=== PATIENT | female | born 1940 | race Caucasian/White ===

== ENCOUNTER 2024-12-04 16:37 | Observation (INO) ==
[2024-12-04 17:24] LABS: Basophils%(Percent) Auto 0.2 (0.1-0.85); Eosinophils%(Percent) Auto 0.1 % (0.4-2.8); Granulocytes#(Absolute)- Auto 5.2 (2.3-6.0); Hematocrit 42.1 % (35.9-46.7); Mean Corpuscular Volume 96.2 fl (81.0-93.7); Monocytes #(Absolute)- Auto 0.5 (1.1-3.1); Monocytes %(Percent)- Auto 8.1 % (3.6-9.8); Platelet Count 220 K/uL (152-353); White Blood Count 6.3 K/uL (4.3-9.3)
[2024-12-04 17:36] LABS: Potassium 3.9 mmol/L (3.6-5.2)
[2024-12-04] MEDS ORDERED: BENZONATATE 100 MG CAPSULE PO ONE (18:36)
[2024-12-04] MEDS: BENZONATATE 100 MG CAPSULE PO ONE (19:12)
[2024-12-04 19:24] LABS: PH BODY FLUID EXCP BLOOD 6.5 (5 - 9); Urine Appearance CLEAR (CLEAR); Urine Blood NEGATIVE (NEG - TRACE); Urine Color YELLOW (STRAW/YELL.); Urine Urobilinogen Normal (NORMAL)
--- NOTE | 2024-12-04 21:29 | Emergency Department Note ---
HPI - Weakness General Chief complaint: Weakness Stated complaint: nauseated, left arm pain Time Seen by Provider: 12/04/24 16:42 Source: patient Mode of arrival: walk-in Limitations: no limitations History of Present Illness HPI Narrative: 84-year-old female patient presents conscious alert and oriented x 4 to the ER complaining of generalized weakness. Patient also complains of cough cold congestion. Patient states that she was diagnosed with COVID-19 on and just feels like she is getting worse. Patient states she has a mildly productive cough. Patient states that the cough causes her to be short of breath. Patient has a history of COPD but states that she is not on any home oxygen. MD Complaint: Reports generalized weakness and lack of energy Onset (ago): day(s) (4) Duration: Reports constant Location: Reports generalized Migration: Reports none Severity: mild Relieving factors: Reports none Exacerbating factors: Reports none Context: Reports recent illness Associated symptoms: Reports other (cough); Denies chest pain, confusion, dark stools, diaphoresis, dysuria, easy bruising, fever/chills, headaches, loss of appetite, nausea/vomiting, myalgias, rash, shortness of breath or syncope Related Data Allergies Allergy/AdvReac Type Severity Reaction Status Date / Time Cephalosporins Allergy Unknown Verified 12/04/24 16:45 codeine Allergy Unknown Verified 12/04/24 16:45 Review of Systems Status of ROS 10 or more systems reviewed and unremark able except as noted in history and below Constitutional Reports: fatigue Respiratory Reports: cough PFSH PFSH Medical History Hyperlipidemia A-fib COPD (chronic obstructive pulmonary disease) Social History Smoking status: never smoker Exam Constitutional: normal general appearance, no apparent distress and average body habitus Vital Signs - 24 hr 12/04/24 16:37 Temperature 98.3 F Pulse Rate 68 Respiratory Rate 16 Blood Pressure 122/49 Pulse Oximetry 94 L Oxygen Delivery Me thod Room Air HENMT: normocephalic and head/scalp atraumatic Eyes: PERRL, EOMs intact bilaterally and conjunctivae normal Neck/C-Spine: visual inspection normal and trachea midline Lymph: no lymphadenopathy noted and no lymphedema noted Chest: inspection of chest normal and palpation of chest normal Respiratory: breath sounds equal bilaterally, normal respiratory effort, auscultation abnormal (mild rhonchi bilaterally) and no use of accessory muscles Cardiovascular: normal heart rate noted and regular rhythm noted Gastrointestinal: abdomen normal to inspection, abdomen soft to palpation and nontender to palpation Genitourinary: no CVA tenderness Back/Pelvis: spine normal to inspection Extremities: normal to inspection, normal to palpation and no tenderness 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 Abdomen soft and nontender to palpation. Normoactive bowel sounds. No rigidity or distention is noted. Chest x-ray shows patchy bilateral infiltrates. Patient is positive for COVID- 19. O2 saturation is ranged from 93% to 95% however patient does have a history of COPD. Patient is not currently on any home O2. Patient was placed on 2 L O2 nasal cannula while in the ER.Patient was given azithromycin 500 mg IVP. I discussed with patient and desire to admit for further evaluation and treatment of pneumonia generalized weakness and COVID-19. Patient and are both in agreement with treatment plan. Vital Signs Vital signs: Vital Signs Temperature 98.3 F 12/04/24 16:37 Pulse Rate 68 12/04/24 16:37 Respiratory Rate 16 12/04/24 16:37 Blood Pressure 122/49 12/04/24 16:37 Pulse Oximetry 94 L 12/04/24 16:37 Oxygen Delivery Method Room Air 12/04/24 16:37 Temperature 98.3 F 12/04/24 16:37 Pulse Rate 68 12/04/24 16:37 Respiratory Rate 16 12/04/24 16:37 Blood Pressure 122/49 12/04/24 16:37 Pulse Oximetry 94 L 12/04/24 16:37 Oxygen Delivery Method Room Air 12/04/24 16:37 MDM - Weakness Differential Diagnosis Differential diagnosis: Likely acute myocardial infarction, anemia, hypoglycemia, hypothyroidism, rhabdomyolysis, sepsis, dehydration and other (COVID-19, influenza, URI) Lab Data Attestation: I reviewed the patient's lab results. Labs: Lab Results 12/04/24 12/04/24 12/04/24 Range/Units 16:25 16:55 18:30 WBC 6.3 (4.3-9.3) K/uL RBC 4.4 (4.00-5.50) M/uL Hgb 14.3 (12.5-15.8) gm/dL Hct 42.1 (35.9-46.7) % MCV 96.2 H (81.0-93.7) fl MCH 32.6 H (27.6-32.2) pg MCHC 33.9 (33.1-35.3) g/dl RDW 13.5 (11.4-14.2) % Plt Count 220 (152-353) K/uL MPV 7.9 (6.9-10.8) fl Gran % 82.0 H (47.8-71.3) % Lymph % (Auto) 9.6 L (20.0-43.0) % [place] % (Auto) 8.1 (3.6-9.8) % Eos % (Auto) 0.1 L (0.4-2.8) % Baso % (Auto) 0.2 (0.1-0.85) Lymph # (Auto) 0.6 L (1.1-3.1) [place] # (Auto) 0.5 L (1.1-3.1) Eos # (Auto) 0.0 (0.0-0.2) Baso # (Auto) 0.0 (0.0-0.1) Absolute Gran (auto) 5.2 (2.3-6.0) Sodium 137 (136-145) mmol/L Potassium 3.9 (3.6-5.2) mmol/L Chloride 102.0 (98-107) mmol/L Carbon Dioxide 26 (21-32) mmol/L Anion Gap 9.0 (4-14) mEq/L BUN 20 H (7-18) mg/dL Creatinine 1.0 (0.6-1.3) mg/dL Estimated GFR 54.9 (>59.9) Glucose 90 (70-110) mg/dL Calcium 8.3 L (8.5-10.1) mg/dL Total Bilirubin 0.53 (0.0-1.0) mg/dL AST 16 (15-37) U/L ALT 18 L (30-65) U/L Alkaline Phosphatase 76 (50-136) U/L Total Protein 6.0 L (6.4-8.2) g/dL Albumin 2.9 L (3.4-5.0) g/dL Urine Color Yellow (STRAW/YELL.) Urine Appearance Clear (CLEAR) Ur Specific [place] 1.010 (1.001-1.035) Urine Protein Negative (NEGATIVE) Urine Glucose (UA) Normal (NORMAL) Urine Ketones Negative (NEGATIVE) Urine Occult Blood Negative (NEG - TRACE) Urine Nitrite Negative (NEGATIVE) Urine Bilirubin Negative (NEGATIVE) Urine Urobilinogen Normal (NORMAL) Ur Leukocyte Esterase Negative (NEGATIVE) Fluid pH 6.5 (5 - 9) COVID-19 (LUCIAN) Detected A (Not Detectd) Influenza Type A Ag Negative (Negative) Influenza Type B Ag Negative (Negative) Imaging Data Imaging ordered: Chest x-ray Attestation: I personally reviewed and interpreted this imaging study as follows: My impression: Patchy bilateral infiltrates Discharge Plan Discharge Patient Disposition: Admitted As Observation Condition: Stable Chief Complaint: Weakness Clinical Impression: COVID-19, Pneumonia, Generalized weakness Print Language: R[place]an Referrals: Mary Srivastava NP [Primary Care Provider] - Time of Disposition: 21:28
[2024-12-04] MEDS ORDERED: AZITHROMYCIN 500 MG 500 MG in 0.9 % SODIUM CHLORIDE 250 ML IV SCH (21:30)
[2024-12-04] MEDS: AZITHROMYCIN 500 MG 500 MG in 0.9 % SODIUM CHLORIDE 250 ML IV ONE (22:58)
[2024-12-05] MEDS ORDERED: ACETAMINOPHEN 325 MG TABLET PO PRN (04:55)
[2024-12-05] MEDS: ACETAMINOPHEN 325 MG TABLET PO PRN (09:25)
[2024-12-05] MEDS: APIXABAN 2.5 MG TABLET PO SCH (11:06)
[2024-12-05] MEDS: RANOLAZINE 500 MG TAB.ER.12H PO SCH (11:06)
[2024-12-05] MEDS: HYDROXYCHLOROQUINE SULFATE 200 MG TABLET PO SCH (11:07)
[2024-12-05] MEDS: FUROSEMIDE 40 MG TABLET PO SCH (11:07)
[2024-12-05] MEDS: ATORVASTATIN CALCIUM 10 MG TABLET PO SCH (11:07)
[2024-12-05] MEDS: DILTIAZEM HCL 240 MG PO SCH (11:07)
[2024-12-05] MEDS: LEVOFLOXACIN/D5W 750 MG/150 ML 750 MG/150 ML PIGGYBACK IV SCH (11:08)
[2024-12-05] MEDS: BUSPIRONE HCL 5 MG TABLET PO SCH (11:08)
--- NOTE | 2024-12-05 12:05 | History & Physical Report ---
H&P: HPI History of Present Illness Chief complaint: PNEUMONIA,COVID 19,GENERALIZED WEAKNESS Narrative: Ms. Soto was admitted on 12/04/24 from the ED where she presented with complaint of weakness and congestion. Patient began having runny nose and cough on , and was checked by urgent care tuesday testing postive for covid. She does admit to fever, chills that occured yesterday with some nausea. She denies any contact with sick. She has had mild cough with yellow sputum. She does have history of COPD with nebulizers and inhalers at home; she does use home O2. Labs were unremarkable with a positive covid test. CXR prelim read showed bilateral infiltrates with final report no acute findings. She was started on zithromax at urgent care, will change to levoquin. Review of Systems Status of ROS 10 or more systems reviewed and unremark able except as noted in history and below Constitutional Reports: fatigue Respiratory Reports: cough Endocrine Reports: fatigue PFSH PFS Medical History (Updated 12/05/24 @ 12:05 by Rajinder Jaramillo NP) Pneumonia COVID Hyperlipidemia A-fib COPD (chronic obstructive pulmonary disease) Social History Smoking status: never smoker Problems where you live: no known problems Highest level of school completed/degree received: high school Meds Home Medications and Allergies Home Medications Medication Instructions Recorded Confirmed Type apixaban 2.5 mg tablet (Eliquis) 2.5 mg PO BID 12/05/24 12/05/24 History atorvastatin 10 mg tablet 10 mg PO DAILY 12/05/24 12/05/24 History azithromycin 250 mg tablet 250 mg PO DAILY 12/05/24 12/05/24 History budesonide 160 mcg-glycopyr 9 2 inh inhalation BID 12/05/24 12/05/24 History mcg-formot 4.8 mcg/actuation HFA inhaler (Breztri Aerosphere) buspirone 5 mg tablet 5 mg PO DAILY 12/05/24 12/05/24 History diltiazem HCl 240 mg 240 mg PO DAILY 12/05/24 12/05/24 History capsule,extended release 24 hr ergocalciferol (vitamin D2) 1,250 50,000 unit PO Q7D 12/05/24 12/05/24 History mcg (50,000 unit) capsule furosemide 40 mg tablet 40 mg PO DAILY 12/05/24 12/05/24 History hydroxychloroquine 200 mg tablet 200 mg PO DAILY 12/05/24 12/05/24 History levothyroxine 50 mcg tablet 50 mcg PO QDAC 12/05/24 12/05/24 History ranolazine 500 mg tablet,extended 500 mg PO BID 12/05/24 12/05/24 History release,12 hr Allergies Allergy/AdvReac Type Severity Reaction Status Date / Time Cephalosporins Allergy Unknown Verified 12/04/24 16:45 codeine Allergy Unknown Verified 12/04/24 16:45 Exam Constitutional: normal general appearance, no apparent distress and average body habitus Vital Signs - 24 hr 12/04/24 16:37 12/04/24 17:00 12/04/24 19:00 Temperature 98.3 F Pulse Rate 68 69 69 Pulse Rate [Bilate ral] Respiratory Rate 16 18 18 Blood Pressure 122/49 122/50 112/58 Blood Pressure [Ri ght Arm] Pulse Oximetry 94 L 94 L 94 [facility] Room Air 12/04/24 19:30 12/04/24 20:00 12/04/24 21:00 Temperature Pulse Rate 64 67 70 Pulse Rate [Bilate ral] Respiratory Rate 18 18 18 Blood Pressure 112/48 117/58 118/55 Blood Pressure [Ri ght Arm] Pulse Oximetry 94 L 94 L 94 L Oxygen Delivery [facility] Room Air Room Air Room Air 12/04/24 21:30 12/04/24 22:03 12/05/24 00:00 Temperature 98.1 F Pulse Rate 68 68 Pulse Rate [Bilate ral] 70 Respiratory Rate 16 16 24 Blood Pressure 107/58 107/58 Blood Pressure [Ri ght Arm] 168/50 Pulse Oximetry 93 L 93 L 94 L [facility] Room Air 12/05/24 04:00 12/05/24 08:00 Temperature 97.9 F 98.1 F Pulse Rate Pulse Rate [Bilate ral] 68 75 Respiratory Rate 21 20 Blood Pressure Blood Pressure [Ri ght Arm] 150/51 151/61 Pulse Oximetry 92 L 92 L [facility] Room Air HENMT: normocephalic and head/scalp atraumatic Eyes: PERRL, EOMs intact bilaterally and conjunctivae normal Neck/C-Spine: visual inspection normal and trachea midline Lymph: no lymphadenopathy noted and no lymphedema noted Chest: inspection of chest normal and palpation of chest normal Respiratory: breath sounds equal bilaterally, normal respiratory effort, clear to auscultation bilaterally and no use of accessory muscles Cardiovascular: normal heart rate noted and regular rhythm noted Gastrointestinal: abdomen normal to inspection, abdomen soft to palpation and nontender to palpation Genitourinary: no CVA tenderness Back/Pelvis: spine normal to inspection Extremities: normal to inspection, normal to palpation and no tenderness 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 and no movement abnormality noted Psychiatry: mental status grossly normal and oriented x3 Skin: skin color normal Assessment and Plan Assessment and Plan (1) Pneumonia: Code(s): J18.9 - Pneumonia, unspecified organism (2) COVID: Code(s): U07.1 - COVID-19 Plan Admit VS q4hr Levaquin 750mg IV q48hrs Continue inhalers Decadron 4mg IV daily O2prn Tessalon Perles 100mg po q8hrs prn Robitussin DM 10ml q6 hrs prn CBC CMP in AM Results Labs Labs: CBC 12/04/24 Range/Units 16:25 WBC 6.3 (4.3-9.3) K/uL RBC 4.4 (4.00-5.50) M/uL Hgb 14.3 (12.5-15.8) gm/dL Hct 42.1 (35.9-46.7) % Plt Count 220 (152-353) K/uL Gran % 82.0 H (47.8-71.3) % Lymph % (Auto) 9.6 L (20.0-43.0) % [place] % (Auto) 8.1 (3.6-9.8) % Eos % (Auto) 0.1 L (0.4-2.8) % Baso % (Auto) 0.2 (0.1-0.85) Lymph # (Auto) 0.6 L (1.1-3.1) [place] # (Auto) 0.5 L (1.1-3.1) Eos # (Auto) 0.0 (0.0-0.2) Baso # (Auto) 0.0 (0.0-0.1) Absolute Gran (auto) 5.2 (2.3-6.0) CMP 12/04/24 16:25 Sodium 137 Potassium 3.9 Chloride 102.0 Carbon Dioxide 26 BUN 20 H Creatinine 1.0 Glucose 90 Calcium 8.3 L Liver Function 12/04/24 Range/Units 16:25 Total Bilirubin 0.53 (0.0-1.0) mg/dL AST 16 (15-37) U/L ALT 18 L (30-65) U/L Alkaline Phosphatase 76 (50-136) U/L Albumin 2.9 L (3.4-5.0) g/dL Urine 12/04/24 18:30 Urine Color Yellow Urine Appearance Clear Ur Specific [place] 1.010 Urine Protein Negative Urine Glucose (UA) Normal Imaging Imaging ordered: Chest x-ray Radiologist's impression: [place] [address] XRay Report Signed Patient: Nallely Soto MR#: [id number] : 1940 Acct:[id number] Age/Sex: 84 / F ADM Date: 12/04/24 Loc: [place] 1116-[address]: Rajinder Jaramillo NP Ordering Physician: Paul Meyer NP Date of Service: 12/04/24 Procedure(s): XR chest 1V Accession Number(s): [id number] cc: Paul Meyer NP; Rajinder Jaramillo NP~ EXAM: XR CHEST 1V HISTORY: coughcough; COMPARISON: 07/21/2023 FINDINGS: The lungs are clear. No pneumothorax or effusion. The lungs are not as well inflated as on the most recent prior study. Heart size is normal. Atherosclerotic calcifications are present in the aorta. Degenerative changes are present in both shoulders. Dextroconvex scoliosis is unchanged. IMPRESSION: 1. No acute findings THIS IS AN ELECTRONICALLY VERIFIED FINAL REPORT 12/05/2024 8:04 AM - Electronically signed by Arjun Soto MD Dictated By: Arujn Soto M.D. Signed By: 12/05/24 0804 DD/ 1558 TD/TT: 12/04/24 3486 Research Epidemiologist:
[2024-12-05] MEDS: LEVOTHYROXINE SODIUM 50 MCG TABLET PO SCH (15:18)
[2024-12-05] MEDS: GUAIFENESIN/DEXTROMETHORPHAN 20/200MG/10 ML SOLUTION PO PRN (20:49)
[2024-12-05] MEDS: BENZONATATE 100 MG CAPSULE PO PRN (20:49)
[2024-12-05] MEDS: [UNRECOGNIZED DRUG - OTHER] INH SCH (22:16)
[2024-12-05] MEDS: BUDESONIDE GLYCOPYR FORMOTEROL INH SCH (22:16)
[2024-12-06 07:18] LABS: Basophils%(Percent) Auto 0.3 (0.1-0.85); Granulocytes % - Auto 77.1 % (47.8-71.3); Granulocytes#(Absolute)- Auto 4.2 (2.3-6.0); Hematocrit 41.5 % (35.9-46.7); Mean Corpuscular Volume 95.8 fl (81.0-93.7); Monocytes #(Absolute)- Auto 0.5 (1.1-3.1); Monocytes %(Percent)- Auto 8.8 % (3.6-9.8); Platelet Count 195 K/uL (152-353); White Blood Count 5.4 K/uL (4.3-9.3)
[2024-12-06 07:46] LABS: Potassium 3.6 mmol/L (3.6-5.2)
[2024-12-06 08:00] VITALS: BP 134/63; RESP 20; TEMP 98
[2024-12-06 08:44] VITALS: PULSE 68
--- NOTE | 2024-12-06 09:09 | Discharge Summary ---
DS: Providers Provider Date of admission: 12/04/24 21:29 Primary care physician: Mary Srivastava NP Consults: 12/05/24 10:16 Consult to Physical Therapy Routine Comment: Consulting Provider: Reason for consultation: covid, weakness Physician Instructions: Eval and tx DS: Diagnosis Discharge Diagnosis (1) Pneumonia: (2) COVID: DS: Summary Hospital Course Hospital Course: Ms. Soto was admitted on 12/04/24 from the ED where she presented with complaint of weakness and congestion. Patient began having runny nose and cough on , and was checked by urgent care tuesday testing postive for covid. She does admit to fever, chills that occured yesterday with some nausea. She denies any contact with sick. She has had mild cough with yellow sputum. She does have history of COPD with nebulizers and inhalers at home; she does use home O2. Labs were unremarkable with a positive covid test. CXR prelim read showed bilateral infiltrates with final report no acute findings. She was started on zithromax at urgent care, and changed to levaquin during her stay due to recent abx use. Labs and vitals continued to remain stable throughout her stay. PT evaluated for mobility, strength, and gait; patient safe to return to previous activities. RT performed 6 min walk and she does not qualify for home O2. Patient was discharged on 12/06/24 to follow up with PCP in 1 week Status at Discharge Functional status at discharge: uses cane/walker Overall status at discharge: patient is progressing back to baseline Time Spent with Patient Time attestation: Total time spent providing and/or coordinating discharge services: Exam Constitutional: normal general appearance, no apparent distress and average body habitus Vital Signs - 24 hr 12/05/24 12:00 12/05/24 16:00 12/05/24 19:49 Temperature 98.2 F 98.0 F 97.2 F L Pulse Rate Pulse Rate [Bilate ral] 73 55 L 62 Respiratory Rate 19 19 20 Blood Pressure [Ri ght Arm] 130/54 119/54 124/54 Pulse Oximetry 91 L 90 L 94 L Oxygen Delivery Me thod Room Air Room Air Room Air Fraction of Inspir ed Oxygen 12/05/24 20:00 12/05/24 23:40 12/06/24 03:43 Temperature 97.2 F L 97.2 F L 97.6 F Pulse Rate Pulse Rate [Bilate ral] 62 61 60 Respiratory Rate 20 18 17 Blood Pressure [Ri ght Arm] 125/54 115/52 139/69 Pulse Oximetry 94 L 93 L Oxygen Delivery Me thod Room Air Room Air Room Air Fraction of Inspir ed Oxygen 12/06/24 07:59 12/06/24 08:07 Temperature 98 F Pulse Rate 68 Pulse Rate [Bilate ral] 64 Respiratory Rate 20 Blood Pressure [Ri ght Arm] 134/63 Pulse Oximetry 94 L 94 L Oxygen Delivery Me thod Room Air Room Air Fraction of Inspir ed Oxygen 21 HENMT: normocephalic and head/scalp atraumatic Eyes: PERRL, EOMs intact bilaterally and conjunctivae normal Neck/C-Spine: visual inspection normal and trachea midline Lymph: no lymphadenopathy noted and no lymphedema noted Chest: inspection of chest normal and palpation of chest normal Respiratory: breath sounds equal bilaterally, normal respiratory effort, clear to auscultation bilaterally (bilateral rhonchi) and no use of accessory muscles Cardiovascular: normal heart rate noted and regular rhythm noted Gastrointestinal: abdomen normal to inspection, abdomen soft to palpation and nontender to palpation Genitourinary: no CVA tenderness Back/Pelvis: spine normal to inspection Extremities: normal to inspection, normal to palpation and no tenderness 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, no movement abnormality noted, no focal motor deficit noted, no sensory deficits noted, gait normal, speech normal, coordination normal and GCS normal Psychiatry: mental status grossly normal and oriented x3 Skin: skin color normal DS: Data Data Completed and Pending Labs on day of discharge: Labs from last 24 hours 12/06/24 07:10 WBC 5.4 RBC 4.3 Hgb 14.3 Hct 41.5 MCV 95.8 H MCH 32.9 H MCHC 34.3 RDW 13.7 Plt Count 195 MPV 7.5 Gran % 77.1 H Lymph % (Auto) 13.8 L [place] % (Auto) 8.8 Eos % (Auto) 0.0 L Baso % (Auto) 0.3 Lymph # (Auto) 0.8 L [place] # (Auto) 0.5 L Eos # (Auto) 0.0 Baso # (Auto) 0.0 Absolute Gran (auto) 4.2 Sodium 138 Potassium 3.6 Chloride 105.0 Carbon Dioxide 25 Anion Gap 8.0 BUN 17 Creatinine 0.8 Estimated GFR 71.7 Glucose 112 H Calcium 8.5 Discharge Plan Discharge Disposition: Home, Self-Care Condition: Stable Discharge Medications: New benzonatate 100 mg Capsule 100 mg PO Q8H PRN (Reason: Cough) Qty: 15 0RF levofloxacin 750 mg tablet 750 mg PO Q48H Qty: 5 0RF Rx Instructions: Start on 12/07/24 guaifenesin [Mucinex] 1,200 mg tablet extended release 12hr 1,200 mg PO BID Qty: 14 0RF Continued atorvastatin 10 mg tablet 10 mg PO DAILY Patient Comments: TAKE ONE TABLET BY MOUTH AT BEDTIME Breztri Aerosphere 160-9-4.8 mcg/actuation HFA aerosol inhaler 2 inh INHALATION BID Patient Comments: INHALE TWO PUFFS BY MOUTH TWICE DAILY DIRECTED buspirone 5 mg tablet 5 mg PO DAILY Patient Comments: TAKE ONE TABLET BY MOUTH EVERY DAY NEEDED diltiazem HCl 240 mg capsule,extended release 24hr 240 mg PO DAILY Patient Comments: TAKE ONE CAPSULE BY MOUTH EVERY DAY furosemide 40 mg tablet 40 mg PO DAILY Patient Comments: TAKE ONE TABLET BY MOUTH EVERY DAY hydroxychloroquine 200 mg tablet 200 mg PO DAILY Patient Comments: TAKE 2 TABLETS BY MOUTH TWICE DAILY FOR 1 DAY, THEN 1 TABLET BY MOUTH TWICE DAILY FOR 4 DAYS levothyroxine 50 mcg tablet 50 mcg PO QDAC Patient Comments: Take 1 tablet by mouth every morning with water at least 30 to 60 minutes before any other medication, food, or drink. ranolazine 500 mg tablet extended release 12 hr 500 mg PO BID Patient Comments: TAKE ONE TABLET BY MOUTH TWICE DAILY Eliquis 2.5 mg tablet 2.5 mg PO BID Patient Comments: TAKE ONE TABLET BY MOUTH TWICE DAILY ergocalciferol (vitamin D2) 1,250 mcg (50,000 unit) capsule 50,000 unit PO Q7D Patient Comments: TAKE ONE CAPSULE BY MOUTH EVERY WEEK Discontinued azithromycin 250 mg tablet 250 mg PO DAILY Patient Comments: TAKE 2 TABLETS BY MOUTH ON DAY 1, AND THEN TAKE 1 TABLET BY MOUTH ONCE A DAY ON DAY 2 THROUGH DAY 5 Discharge Orders: Discharge Order (Routine); Ordered 12/06/24 Ordered By: Rajinder Jaramillo Activity: resume usual activities as tolerated Diet: advance to your usual diet Forms: Portal/Health Info Access Inst Follow-Ups: Mary Srivastava NP [Primary Care Provider] - Discharge Comment: PCP in 1 week
[2024-12-06] MEDS: TIOTROPIUM BROMIDE 18 MCG CAP.W.DEV INH SCH (09:23)
[2024-12-06] MEDS: BUDESONIDE/FORMOTEROL FUMARATE 160/4.5 MCG INH SCH (09:23)
== END 2024-12-06 09:42 | disposition home or self-care (01) ==
LOC: ED 16:37 → MS 16:37
PROVIDERS: ADMIT Nurse Practitioner Family; ATTEND Nurse Practitioner
DX: Z79.899 Other long term (current) drug therapy; Z88.1 Allergy status to other antibiotic agents; Z79.890 Hormone replacement therapy; I70.0 Atherosclerosis of aorta; Z79.51 Long term (current) use of inhaled steroids; Z79.01 Long term (current) use of anticoagulants; J12.82 Pneumonia due to coronavirus disease 2019; R53.1 Weakness; Z88.5 Allergy status to narcotic agent; J44.0 Chronic obstructive pulmonary disease with (acute) lower respiratory infection; E78.5 Hyperlipidemia, unspecified; U07.1 COVID-19; Z79.1 Long term (current) use of non-steroidal anti-inflammatories (NSAID); Z86.79 Personal history of other diseases of the circulatory system